=== PATIENT | female | born 1945 | race Caucasian/White ===

== ENCOUNTER 2017-05-15 22:01 | Inpatient (IN) | payer MEDICARE, BC ==
[~2017-05-15] VITALS: Ht 175.3 cm; Wt 60.9 kg
[~2017-05-15 22:01] MED LIST: CA C1TAB60 PO; CALC1CAP8 PO; CHOL200040 PO; DORZ10DR3 EACHEYE; FISH OIL PO; FISH1CAP PO; HYDR-3138 PO; INFL100V IV; METH2.5T PO; METH4TAB7 PO; METH8TAB5 PO; METO25TA35 PO; METOPROLOL PO; NABU750T PO; OMEP-110 PO; PRED10TA PO; PRED2.5T PO; REMICADE INFUSION; TIMO5DRO5 LEFTEYE
[2017-05-15] MEDS ORDERED: ACETAMINOPHEN 325 MG TABLET PO ONE (22:30)
[2017-05-15] MEDS ORDERED: SODIUM CHLORIDE 0.9% 1,000ML IVBOLUS ONE (22:30)
[2017-05-15] MEDS ORDERED: SODIUM CHLORIDE FLUSH 10ML SYR IVF ONE (22:30)
[2017-05-15] MEDS ORDERED: PIPERACILLIN/TAZO 3.375 GM in SODIUM CHLORIDE 0.9% 50 ML IVPB ONE (22:30)
[2017-05-15 23:04] LABS: ASPARTATE AMINO TRANSFERASE 58 U/L (15-37); BLOOD UREA NITROGEN 11 mg/dL (7-18)
[2017-05-15] MEDS ORDERED: PIPERACILLIN/TAZO/PMX 3.375GM 50 ML ONE (23:06)
[2017-05-15 23:10] LABS: IS PT STATUS REG ER OR PRE ER? YES
[2017-05-16] MEDS ORDERED: VANCOMYCIN 1,300 MG in SODIUM CHLORIDE 0.9% 250 ML IV ONE (01:30)
[2017-05-16] MEDS ORDERED: VANCOMYCIN PER PHARMACY IV ONE (01:30)
[2017-05-16] MEDS ORDERED: ASPIRIN 325 MG TABLET ONE (02:52)
[2017-05-16] MEDS ORDERED: ASPIRIN 325 MG TABLET PO ONE (03:00)
[2017-05-16] MEDS ORDERED: PROMETHAZINE 25 MG/ML, 1ML IM PRN (04:30)
[2017-05-16] MEDS ORDERED: MEROPENEM 1 GM in SODIUM CHLORIDE 0.9% 50 ML IV SCH (04:30)
[2017-05-16] MEDS ORDERED: VANCOMYCIN PER PHARMACY MC PRN (04:30)
[2017-05-16] MEDS ORDERED: ONDANSETRON 2MG/ML, 2ML IVPush PRN (04:30)
[2017-05-16 05:00] VITALS: BP 144/77
[2017-05-16 05:20] VITALS: BP 144/77
[2017-05-16 05:22] LABS: ASPARTATE AMINO TRANSFERASE 77 U/L (15-37); BLOOD UREA NITROGEN 10 mg/dL (7-18)
[2017-05-16 05:28] LABS: IS PT STATUS REG ER OR PRE ER? NO
[2017-05-16] MEDS: SODIUM CHLORIDE 0.9% 1,000 ML IV SCH ×2 (05:30→18:00)
[2017-05-16] MEDS: MEROPENEM 1 GM in SODIUM CHLORIDE 0.9% 100 ML IV SCH ×3 (05:30→23:10)
[2017-05-16] MEDS: ENOXAPARIN 40 MG/0.4 ML SQ SCH (05:30)
[2017-05-16 05:44] LABS: RAPID INFLUENZA A Negative (Negative); RAPID INFLUENZA B Negative (Negative)
[2017-05-16] MEDS ORDERED: MAGNESIUM SULFATE PMX 2GM/50ML 50 ML IV ONE (06:00)
[2017-05-16 06:06] LABS: DIFF TOTAL CELLS COUNTED 100 CELL DIFF
[2017-05-16 06:11] LABS: ANISOCYTOSIS 2+; POLYCHROMASIA 1+; VERIFY COUNTS? YES
[2017-05-16 06:12] LABS: MICROCYTOSIS 1+; OVALOCYTES 1+
[2017-05-16] MEDS ORDERED: PHARMACOKINETIC CONSULTATION MC ONE (06:30)
[2017-05-16] MEDS ORDERED: PHARMACOKINETIC MONITORING MC PRN (06:30)
[2017-05-16 06:38] VITALS: BP 125/74
[2017-05-16] MEDS: DORZOLAMIDE OPHTH 2%, 10ML EACHEYE SCH ×2 (09:00→20:24)
[2017-05-16] MEDS: TIMOLOL OPHTH 0.5%, 5ML LEFTEYE SCH (09:00)
[2017-05-16] MEDS: POTASSIUM CHLORIDE 20 MEQ TAB.ER.PRT PO SCH ×3 (09:24→18:42)
[2017-05-16] MEDS: METOPROLOL TARTRATE 25 MG TABLET PO SCH ×2 (09:24→20:25)
[2017-05-16] MEDS ORDERED: LEFL20TA16 PO (09:33)
[2017-05-16] MEDS ORDERED: GABA300C10 PO (09:33)
[2017-05-16] MEDS ORDERED: AMLO5TAB4 PO (09:33)
[2017-05-16 11:01] LABS: IS PT STATUS REG ER OR PRE ER? NO
[2017-05-16 14:22] VITALS: BP 143/82
[2017-05-16 15:40] LABS: IS PT STATUS REG ER OR PRE ER? NO
[2017-05-16 18:23] VITALS: BP 146/83
[2017-05-16] MEDS ORDERED: ACETAMINOPHEN 325 MG TABLET ONE (18:40)
[2017-05-16] MEDS: ACETAMINOPHEN 325 MG TABLET PO PRN (18:43)
[2017-05-16] MEDS: VANCOMYCIN 1,300 MG in SODIUM CHLORIDE 0.9% 250 ML IV SCH (20:19)
[2017-05-17] VITALS (8 sets, daily range): BP systolic 96–189; BP diastolic 59–98
[2017-05-17] MEDS: SODIUM CHLORIDE 0.9% 1,000 ML IV SCH ×3 (02:30→18:00)
[2017-05-17] MEDS ORDERED: FUROSEMIDE 20 MG/2 ML ONE (02:39)
[2017-05-17] MEDS ORDERED: MORPHINE SULFATE 4 MG/ML, 1ML IVPush PRN (03:00)
[2017-05-17] MEDS ORDERED: NITROGLYCERIN 0.4 MG BOTTLE (25 TABS) SL ONE (03:15)
[2017-05-17 03:19] LABS: ABG COLLECTION SITE ARTERIAL LINE
[2017-05-17] MEDS ORDERED: NITROGLYCERIN 0.4 MG BOTTLE (25 TABS) SL PRN (03:30)
[2017-05-17 03:43] LABS: IS PT STATUS REG ER OR PRE ER? NO
[2017-05-17] MEDS ORDERED: HEPARIN 5,000 UNITS/ML, 1ML ONE (03:44)
[2017-05-17] MEDS ORDERED: HEPARIN 5,000 UNITS/ML, 1ML IV ONE (04:00)
[2017-05-17] MEDS ORDERED: MIDAZOLAM 1 MG/ML, 5ML ONE (04:09)
[2017-05-17] MEDS ORDERED: NITROGLYCERIN 5 MG/ML, 10ML ONE (04:09)
[2017-05-17] MEDS ORDERED: VERAPAMIL 2.5 MG/ML, 2ML ONE (04:09)
[2017-05-17] MEDS ORDERED: FENTANYL PF 100 MCG/2ML ONE (04:09)
[2017-05-17] MEDS ORDERED: TICAGRELOR 90 MG TABLET ONE (04:10)
[2017-05-17] MEDS ORDERED: LIDOCAINE 2%, 20ML ONE (04:10)
[2017-05-17] MEDS ORDERED: BIVALIRUDIN 250 MG ONE (04:10)
[2017-05-17] MEDS ORDERED: HEPARIN 1,000 UNITS/ML, 10ML ONE (04:10)
[2017-05-17] MEDS: ENOXAPARIN 40 MG/0.4 ML SQ SCH (04:30)
[2017-05-17] MEDS: MEROPENEM 1 GM in SODIUM CHLORIDE 0.9% 100 ML IV SCH ×3 (06:11→21:26)
[2017-05-17 07:40] LABS: ASPARTATE AMINO TRANSFERASE 96 U/L (15-37); BLOOD UREA NITROGEN 12 mg/dL (7-18)
[2017-05-17 07:41] LABS: IS PT STATUS REG ER OR PRE ER? YES
[2017-05-17] MEDS ORDERED: FUROSEMIDE 40 MG/4 ML IV ONE (09:00)
[2017-05-17] MEDS: METOPROLOL TARTRATE 25 MG TABLET PO SCH ×2 (09:00→20:24)
[2017-05-17] MEDS: DORZOLAMIDE OPHTH 2%, 10ML EACHEYE SCH ×2 (09:00→20:24)
[2017-05-17] MEDS ORDERED: POTASSIUM CHLORIDE 20 MEQ TAB.ER.PRT PO ONE (09:00)
[2017-05-17] MEDS: TIMOLOL OPHTH 0.5%, 5ML LEFTEYE SCH (09:00)
[2017-05-17] MEDS: LISINOPRIL 5 MG TABLET PO SCH (09:00)
[2017-05-17 10:16] LABS: ABG COLLECTION SITE LEFT RADIAL; COLLATERAL CIRCULATION TESTING NORMAL; FIO2 50 %
[2017-05-17 12:13] LABS: IS PT STATUS REG ER OR PRE ER? NO
[2017-05-17] MEDS: CLOPIDOGREL 75 MG TABLET PO SCH (14:53)
[2017-05-17] MEDS ORDERED: CARVEDILOL 3.125 MG TABLET PO SCH (18:00)
[2017-05-17 18:28] LABS: IS PT STATUS REG ER OR PRE ER? NO
[2017-05-17] MEDS: POTASSIUM CHLORIDE 20 MEQ TAB.ER.PRT PO SCH (18:49)
[2017-05-17] MEDS: VANCOMYCIN 1,300 MG in SODIUM CHLORIDE 0.9% 250 ML IV SCH (19:38)
[2017-05-17] MEDS: ATORVASTATIN 20 MG TABLET PO SCH (20:24)
[2017-05-17] MEDS: ACETAMINOPHEN 325 MG TABLET PO PRN (20:24)
[2017-05-18 01:46] VITALS: BP 99/65
[2017-05-18] MEDS: SODIUM CHLORIDE 0.9% 1,000 ML IV SCH ×2 (02:00→10:00)
[2017-05-18] MEDS: ENOXAPARIN 40 MG/0.4 ML SQ SCH (04:27)
[2017-05-18] MEDS: MEROPENEM 1 GM in SODIUM CHLORIDE 0.9% 100 ML IV SCH ×3 (04:27→21:55)
[2017-05-18] MEDS: ASPIRIN 81 MG TABLET EC PO SCH (05:45)
[2017-05-18 06:33] LABS: ASPARTATE AMINO TRANSFERASE 101 U/L (15-37); BLOOD UREA NITROGEN 15 mg/dL (7-18)
[2017-05-18 06:37] VITALS: BP 118/76
[2017-05-18] MEDS ORDERED: POTASSIUM CHLORIDE 20 MEQ TAB.ER.PRT PO SCH (08:30)
[2017-05-18] MEDS: TIMOLOL OPHTH 0.5%, 5ML LEFTEYE SCH ×2 (09:00→21:18)
[2017-05-18] MEDS: POTASSIUM CHLORIDE 20 MEQ TAB.ER.PRT PO SCH ×2 (09:07→16:56)
[2017-05-18] MEDS: CLOPIDOGREL 75 MG TABLET PO SCH (09:08)
[2017-05-18] MEDS: LISINOPRIL 5 MG TABLET PO SCH (09:09)
[2017-05-18] MEDS: METOPROLOL TARTRATE 25 MG TABLET PO SCH ×2 (09:11→20:21)
[2017-05-18] MEDS: DORZOLAMIDE OPHTH 2%, 10ML EACHEYE SCH ×2 (09:18→20:20)
[2017-05-18 10:28] LABS: IS PT STATUS REG ER OR PRE ER? NO
[2017-05-18] MEDS ORDERED: FUROSEMIDE 20 MG/2 ML IV ONE (10:30)
[2017-05-18] MEDS ORDERED: POTASSIUM CHLORIDE 20 MEQ TAB.ER.PRT PO ONE (10:30)
[2017-05-18] MEDS: CARVEDILOL 3.125 MG TABLET PO SCH ×2 (12:02→18:00)
[2017-05-18 12:24] VITALS: BP 144/92
[2017-05-18] MEDS ORDERED: IBUPROFEN 200 MG TABLET PO PRN (13:00)
[2017-05-18 14:30] VITALS: BP 98/60
[2017-05-18] MEDS: GABAPENTIN 300 MG CAPSULE PO SCH ×2 (16:55→20:20)
[2017-05-18 20:00] VITALS: BP 97/60
[2017-05-18] MEDS: ATORVASTATIN 20 MG TABLET PO SCH (20:20)
[2017-05-19 02:00] VITALS: BP 101/65
[2017-05-19] MEDS: ENOXAPARIN 40 MG/0.4 ML SQ SCH (04:54)
[2017-05-19] MEDS: MEROPENEM 1 GM in SODIUM CHLORIDE 0.9% 100 ML IV SCH ×3 (04:54→22:49)
[2017-05-19] MEDS: ASPIRIN 81 MG TABLET EC PO SCH (04:55)
[2017-05-19] MEDS: CARVEDILOL 3.125 MG TABLET PO SCH (04:55)
[2017-05-19 05:20] LABS: BLOOD UREA NITROGEN 20 mg/dL (7-18)
[2017-05-19] MEDS ORDERED: POTASSIUM CHLORIDE 20 MEQ TAB.ER.PRT PO SCH (07:30)
[2017-05-19] MEDS ORDERED: MAGNESIUM SULFATE PMX 2GM/50ML 50 ML IV ONE (07:30)
[2017-05-19] MEDS: GABAPENTIN 300 MG CAPSULE PO SCH ×3 (08:49→20:41)
[2017-05-19] MEDS: CLOPIDOGREL 75 MG TABLET PO SCH (08:49)
[2017-05-19] MEDS: DORZOLAMIDE OPHTH 2%, 10ML EACHEYE SCH ×2 (08:49→20:41)
[2017-05-19] MEDS: POTASSIUM CHLORIDE 20 MEQ TAB.ER.PRT PO SCH ×3 (08:49→18:02)
[2017-05-19] MEDS ORDERED: POTASSIUM CHLORIDE 20 MEQ TAB.ER.PRT PO ONE (09:00)
[2017-05-19 09:09] VITALS: BP 105/71
[2017-05-19] MEDS: LISINOPRIL 5 MG TABLET PO SCH (12:02)
[2017-05-19 15:01] VITALS: BP 95/58
[2017-05-19 17:20] VITALS: BP 89/60
[2017-05-19] MEDS: CARVEDILOL 6.25 MG TABLET PO SCH (17:33)
[2017-05-19 19:00] VITALS: BP 111/76
[2017-05-19] MEDS: ATORVASTATIN 20 MG TABLET PO SCH (20:41)
[2017-05-19] MEDS: TIMOLOL OPHTH 0.5%, 5ML LEFTEYE SCH (20:41)
[2017-05-20 03:30] VITALS: BP 102/65
[2017-05-20 04:38] LABS: BLOOD UREA NITROGEN 14 mg/dL (7-18)
[2017-05-20] MEDS: ASPIRIN 81 MG TABLET EC PO SCH (05:53)
[2017-05-20] MEDS: CARVEDILOL 6.25 MG TABLET PO SCH ×2 (05:55→18:01)
[2017-05-20 06:07] LABS: HEPATITIS B SURFACE AG SCREEN Negative (Negative)
[2017-05-20] MEDS: MEROPENEM 1 GM in SODIUM CHLORIDE 0.9% 100 ML IV SCH ×3 (06:34→23:50)
[2017-05-20 07:51] VITALS: BP 96/60
[2017-05-20] MEDS: GABAPENTIN 300 MG CAPSULE PO SCH ×3 (08:00→19:54)
[2017-05-20] MEDS: POTASSIUM CHLORIDE 20 MEQ TAB.ER.PRT PO SCH ×2 (08:00→18:01)
[2017-05-20] MEDS: DORZOLAMIDE OPHTH 2%, 10ML EACHEYE SCH ×2 (08:00→19:54)
[2017-05-20] MEDS: ENOXAPARIN 40 MG/0.4 ML SQ SCH (08:00)
[2017-05-20] MEDS: CLOPIDOGREL 75 MG TABLET PO SCH (08:00)
[2017-05-20] MEDS: LISINOPRIL 5 MG TABLET PO SCH (08:01)
[2017-05-20 13:48] VITALS: BP 105/68
[2017-05-20 19:41] VITALS: BP 111/73
[2017-05-20] MEDS: TIMOLOL OPHTH 0.5%, 5ML LEFTEYE SCH (19:54)
[2017-05-20] MEDS: ATORVASTATIN 20 MG TABLET PO SCH (19:54)
[2017-05-21 01:01] VITALS: BP 103/65
[2017-05-21] MEDS: ASPIRIN 81 MG TABLET EC PO SCH (05:28)
[2017-05-21] MEDS: CARVEDILOL 6.25 MG TABLET PO SCH (05:28)
[2017-05-21] MEDS ORDERED: LEVOTHYROXINE 25 MCG TABLET PO SCH (06:00)
[2017-05-21 07:20] VITALS: BP 97/60
[2017-05-21] MEDS: MEROPENEM 1 GM in SODIUM CHLORIDE 0.9% 100 ML IV SCH (07:59)
[2017-05-21] MEDS: ENOXAPARIN 40 MG/0.4 ML SQ SCH (08:00)
[2017-05-21] MEDS: DORZOLAMIDE OPHTH 2%, 10ML EACHEYE SCH (08:00)
[2017-05-21] MEDS: LISINOPRIL 5 MG TABLET PO SCH (08:01)
[2017-05-21] MEDS: GABAPENTIN 300 MG CAPSULE PO SCH (08:01)
[2017-05-21] MEDS: POTASSIUM CHLORIDE 20 MEQ TAB.ER.PRT PO SCH (08:01)
[2017-05-21] MEDS: CLOPIDOGREL 75 MG TABLET PO SCH (08:01)
[2017-05-21] MEDS ORDERED: LEVO25TA2 PO (12:39)
[2017-05-21] MEDS ORDERED: ASPI-621 PO (12:39)
[2017-05-21] MEDS ORDERED: CARV6.2512 PO (12:39)
[2017-05-21] MEDS ORDERED: ATOR20TA9 PO ×2 (12:39→14:51)
[2017-05-21] MEDS ORDERED: CLOP75TA PO (12:39)
[2017-05-21] MEDS ORDERED: LISI5TAB7 PO (12:39)
[2017-05-21] MEDS ORDERED: ERTA1VIA IV (12:39)
[2017-05-21 13:15] VITALS: BP 96/63
[2017-05-21] MEDS ORDERED: ERTAPENEM 1 GM in SODIUM CHLORIDE 0.9% 50 ML IV SCH (14:00)
== END 2017-05-21 16:10 | disposition home or self-care (01) | DRG 871 ==
LOC: ED 23:17 → EDIP 05-16 02:53 → 5SO 05-16 04:58
PROVIDERS: ADMIT Internal Medicine
PROC: 0T9B70Z Drainage of Bladder with Drainage Device, Via Natural or Artificial Opening (ICD-10-PCS; 2017-05-15)
PROC: 4A023N7 Measurement of Cardiac Sampling and Pressure, Left Heart, Percutaneous Approach (ICD-10-PCS; 2017-05-17)
PROC: B2111ZZ Fluoroscopy of Multiple Coronary Arteries using Low Osmolar Contrast (ICD-10-PCS; 2017-05-17)
PROC: B2151ZZ Fluoroscopy of Left Heart using Low Osmolar Contrast (ICD-10-PCS; 2017-05-17)
PROC: 02HV33Z Insertion of Infusion Device into Superior Vena Cava, Percutaneous Approach (ICD-10-PCS; principal; 2017-05-18)
PROC: B548ZZA Ultrasonography of Superior Vena Cava, Guidance (ICD-10-PCS; 2017-05-18)
DX: A41.9 Sepsis, unspecified organism (principal); G93.41 Metabolic encephalopathy; E43 Unspecified severe protein-calorie malnutrition; I50.21 Acute systolic (congestive) heart failure; I21.09 ST elevation (STEMI) myocardial infarction involving other coronary artery of anterior wall; J18.9 Pneumonia, unspecified organism; J96.01 Acute respiratory failure with hypoxia; N15.1 Renal and perinephric abscess; A04.7 Enterocolitis due to Clostridium difficile; I42.9 Cardiomyopathy, unspecified; E87.1 Hypo-osmolality and hyponatremia; Z68.1 Body mass index [BMI] 19.9 or less, adult; D63.8 Anemia in other chronic diseases classified elsewhere; E03.9 Hypothyroidism, unspecified; E87.6 Hypokalemia; H40.9 Unspecified glaucoma; I11.0 Hypertensive heart disease with heart failure; I34.0 Nonrheumatic mitral (valve) insufficiency; K44.9 Diaphragmatic hernia without obstruction or gangrene; K73.9 Chronic hepatitis, unspecified; M06.9 Rheumatoid arthritis, unspecified; Z16.12 Extended spectrum beta lactamase (ESBL) resistance; Z79.899 Other long term (current) drug therapy; Z86.19 Personal history of other infectious and parasitic diseases; Z87.01 Personal history of pneumonia (recurrent); Z87.891 Personal history of nicotine dependence; Z90.49 Acquired absence of other specified parts of digestive tract; M19.90 Unspecified osteoarthritis, unspecified site
CPT/HCPCS: 36415; 36569; 36600; 71010; 71250; 71260; 74177; 76937; 77001; 78452; 80048; 80053; 81003; 82140; 82728; 82803; 83516; 83605; 83735; 84100; 84145; 84443; 84484; 85025; 85610; 85730; 86038; 86704; 86706; 86803; 87040; 87081; 87324; 87340; 87400; 87880; 93005; 93306; 93458; 96365; 96366; 96368; 96375; 99156; 99157; C1760; C1894; J0583; J1335; J1644; J1650; J1940; J2185; J2250; J2543; J3010; J3370; J3490; A9502; C1751; C1887; J3475; J7030; J7050; Q9967

== ENCOUNTER 2017-06-09 17:59 | Inpatient (IN) | payer MEDICARE, BC ==
[~2017-06-09] VITALS: Ht 160 cm; Wt 71.0 kg
[~2017-06-09 17:59] MED LIST changes: -OMNIPAQUE 350 MG/ML, 100ML BOTTLE ONE
[2017-06-09] MEDS ORDERED: SODIUM CHLORIDE 0.9% 1,000 ML IV ONE (18:07)
[2017-06-09] MEDS ORDERED: SODIUM CHLORIDE FLUSH 10ML SYR IVF ONE (18:30)
[2017-06-09] MEDS ORDERED: ACETAMINOPHEN 500 MG TABLET ONE (18:30)
[2017-06-09] MEDS ORDERED: PLEASE ENTER HEIGHT AND WEIGHT MC SCH (18:30)
[2017-06-09] MEDS ORDERED: ACETAMINOPHEN 500 MG TABLET PO ONE (18:30)
[2017-06-09 19:22] LABS: ASPARTATE AMINO TRANSFERASE 41 U/L (15-37); BLOOD UREA NITROGEN 9 mg/dL (7-18)
[2017-06-09 19:51] LABS: ANISOCYTOSIS 2+; OVALOCYTES 1+; POLYCHROMASIA 1+; SCHISTOCYTES 1+
[2017-06-09 19:52] LABS: TARGET CELLS 1+
[2017-06-09 19:56] LABS: MICROCYTOSIS 1+
[2017-06-09] MEDS ORDERED: TEMAZEPAM 15 MG CAPSULE PO PRN (21:30)
[2017-06-09] MEDS ORDERED: ONDANSETRON ODT 4 MG PO PRN (21:30)
[2017-06-09] MEDS ORDERED: ACETAMINOPHEN 325 MG TABLET PO PRN (21:30)
[2017-06-09 22:50] VITALS: BP 104/65
[2017-06-09] MEDS: SODIUM CHLORIDE 0.9% 1,000 ML IV SCH (23:25)
[2017-06-09] MEDS: ENOXAPARIN 40 MG/0.4 ML SQ SCH (23:25)
[2017-06-10 01:47] VITALS: BP 138/90
[2017-06-10] MEDS: ASPIRIN 81 MG TABLET EC PO SCH (05:34)
[2017-06-10] MEDS: CARVEDILOL 6.25 MG TABLET PO SCH ×2 (05:35→18:20)
[2017-06-10] MEDS: LEVOTHYROXINE 25 MCG TABLET PO SCH (05:35)
[2017-06-10 06:35] LABS: BLOOD UREA NITROGEN 9 mg/dL (7-18)
[2017-06-10 07:31] VITALS: BP 91/51
[2017-06-10] MEDS: DORZOLAMIDE OPHTH 2%, 10ML EACHEYE SCH ×2 (09:00→20:43)
[2017-06-10] MEDS ORDERED: ERTAPENEM 1 GM IV SCH (09:00)
[2017-06-10] MEDS ORDERED: TIMOLOL OPHTH 0.5%, 5ML LEFTEYE SCH (09:00)
[2017-06-10] MEDS ORDERED: metroNIDAZOLE 500 MG TABLET PO SCH (09:00)
[2017-06-10] MEDS: OMEGA-3/FISH OIL CAPSULE PO SCH (09:32)
[2017-06-10] MEDS: ERTAPENEM 1 GM in SODIUM CHLORIDE 0.9% 50 ML IV SCH (09:32)
[2017-06-10] MEDS: LISINOPRIL 5 MG TABLET PO SCH (09:33)
[2017-06-10] MEDS: CLOPIDOGREL 75 MG TABLET PO SCH (09:33)
[2017-06-10] MEDS: CALCIUM/VITAMIN D3 250-125 TABLET PO SCH ×3 (09:33→20:42)
[2017-06-10] MEDS: NABUMETONE 500 MG TABLET PO SCH ×2 (09:33→20:42)
[2017-06-10] MEDS: GABAPENTIN 300 MG CAPSULE PO SCH ×3 (09:33→20:42)
[2017-06-10] MEDS: CHOLECALCIFEROL 1,000 UNIT TABLET PO SCH (09:33)
[2017-06-10] MEDS: VANCOMYCIN 50 MG/ML ORAL SUSP PO SCH ×3 (11:52→22:16)
[2017-06-10] MEDS: SODIUM CHLORIDE 0.9% 1,000 ML IV SCH (12:02)
[2017-06-10 13:28] VITALS: BP 106/61
[2017-06-10] MEDS ORDERED: POTASSIUM PHOSPHATE 22 MEQ in SODIUM CHLORIDE 0.9% 500 ML IV ONE (16:00)
[2017-06-10 19:18] VITALS: BP 87/52
[2017-06-10] MEDS: ENOXAPARIN 40 MG/0.4 ML SQ SCH (20:43)
[2017-06-10] MEDS ORDERED: ATORVASTATIN 20 MG TABLET PO SCH (21:00)
[2017-06-11 01:58] VITALS: BP 102/62
[2017-06-11] MEDS: VANCOMYCIN 50 MG/ML ORAL SUSP PO SCH ×4 (04:25→22:23)
[2017-06-11 05:03] LABS: BLOOD UREA NITROGEN 10 mg/dL (7-18)
[2017-06-11 05:10] LABS: DIFF TOTAL CELLS COUNTED 100 CELL DIFF
[2017-06-11 05:12] LABS: VERIFY COUNTS? YES
[2017-06-11 05:13] LABS: ANISOCYTOSIS 1+; MICROCYTOSIS 1+; OVALOCYTES 1+; POLYCHROMASIA 1+
[2017-06-11 05:14] LABS: SCHISTOCYTES 1+; TARGET CELLS 1+
[2017-06-11] MEDS: LEVOTHYROXINE 25 MCG TABLET PO SCH (05:36)
[2017-06-11] MEDS: ASPIRIN 81 MG TABLET EC PO SCH (05:37)
[2017-06-11] MEDS: CARVEDILOL 6.25 MG TABLET PO SCH ×2 (05:37→18:00)
[2017-06-11 08:07] VITALS: BP 92/57
[2017-06-11] MEDS: DORZOLAMIDE OPHTH 2%, 10ML EACHEYE SCH ×2 (09:00→20:48)
[2017-06-11] MEDS: CLOPIDOGREL 75 MG TABLET PO SCH ×2 (09:00→09:18)
[2017-06-11] MEDS: POTASSIUM CHLORIDE 20 MEQ TAB.ER.PRT PO SCH ×2 (09:15→16:52)
[2017-06-11] MEDS: SODIUM CHLORIDE 0.9% 1,000 ML IV SCH (09:15)
[2017-06-11] MEDS: GABAPENTIN 300 MG CAPSULE PO SCH ×3 (09:16→20:48)
[2017-06-11] MEDS: CHOLECALCIFEROL 1,000 UNIT TABLET PO SCH (09:16)
[2017-06-11] MEDS: ERTAPENEM 1 GM in SODIUM CHLORIDE 0.9% 50 ML IV SCH (09:16)
[2017-06-11] MEDS: CALCIUM/VITAMIN D3 250-125 TABLET PO SCH ×3 (09:17→20:48)
[2017-06-11] MEDS: NABUMETONE 500 MG TABLET PO SCH ×2 (09:18→20:48)
[2017-06-11] MEDS: OMEGA-3/FISH OIL CAPSULE PO SCH (09:19)
[2017-06-11] MEDS: LISINOPRIL 5 MG TABLET PO SCH (09:22)
[2017-06-11 09:30] VITALS: BP 100/62
[2017-06-11] MEDS: LACTOBACILLUS CHEW TABLET PO SCH ×3 (12:00→20:48)
[2017-06-11 12:59] LABS: OCCBLD OBC PASS
[2017-06-11 14:39] VITALS: BP 95/59
[2017-06-11] MEDS: TIMOLOL OPHTH 0.5%, 5ML LEFTEYE SCH (20:48)
[2017-06-11] MEDS: ENOXAPARIN 40 MG/0.4 ML SQ SCH (20:48)
[2017-06-11 20:50] VITALS: BP 94/58
[2017-06-12] MEDS: SODIUM CHLORIDE 0.9% 1,000 ML IV SCH ×2 (00:27→22:21)
[2017-06-12 01:14] LABS: OCCBLD OBC PASS
[2017-06-12 02:55] VITALS: BP 99/62
[2017-06-12] MEDS: VANCOMYCIN 50 MG/ML ORAL SUSP PO SCH ×4 (04:20→22:21)
[2017-06-12 04:43] LABS: BLOOD UREA NITROGEN 11 mg/dL (7-18)
[2017-06-12 05:40] LABS: DIFF TOTAL CELLS COUNTED 100 CELL DIFF
[2017-06-12 05:42] LABS: ANISOCYTOSIS 1+; VERIFY COUNTS? YES
[2017-06-12 05:43] LABS: OVALOCYTES 1+; POLYCHROMASIA 1+; SCHISTOCYTES 1+
[2017-06-12 05:44] LABS: TARGET CELLS 1+
[2017-06-12] MEDS: ASPIRIN 81 MG TABLET EC PO SCH (05:44)
[2017-06-12] MEDS: LACTOBACILLUS CHEW TABLET PO SCH ×4 (05:44→20:39)
[2017-06-12] MEDS: LEVOTHYROXINE 25 MCG TABLET PO SCH (05:44)
[2017-06-12] MEDS: CARVEDILOL 6.25 MG TABLET PO SCH ×2 (05:46→18:04)
[2017-06-12 07:21] VITALS: BP 109/67
[2017-06-12] MEDS ORDERED: POTASSIUM PHOSPHATE 22 MEQ in SODIUM CHLORIDE 0.9% 500 ML IV ONE (08:30)
[2017-06-12] MEDS: GABAPENTIN 300 MG CAPSULE PO SCH ×3 (08:52→20:39)
[2017-06-12] MEDS: ERTAPENEM 1 GM in SODIUM CHLORIDE 0.9% 50 ML IV SCH (08:52)
[2017-06-12] MEDS: OMEGA-3/FISH OIL CAPSULE PO SCH (08:53)
[2017-06-12] MEDS: CHOLECALCIFEROL 1,000 UNIT TABLET PO SCH (08:53)
[2017-06-12] MEDS: CALCIUM/VITAMIN D3 250-125 TABLET PO SCH ×3 (08:53→20:39)
[2017-06-12] MEDS: NABUMETONE 500 MG TABLET PO SCH ×2 (08:53→20:39)
[2017-06-12] MEDS: LISINOPRIL 5 MG TABLET PO SCH (08:54)
[2017-06-12] MEDS: DORZOLAMIDE OPHTH 2%, 10ML EACHEYE SCH ×2 (08:58→20:40)
[2017-06-12 14:33] VITALS: BP 94/60
[2017-06-12 17:55] VITALS: BP 120/77
[2017-06-12] MEDS: ENOXAPARIN 40 MG/0.4 ML SQ SCH (20:39)
[2017-06-12] MEDS: TIMOLOL OPHTH 0.5%, 5ML LEFTEYE SCH (20:40)
[2017-06-12 20:51] VITALS: BP 106/66
[2017-06-13 02:59] VITALS: BP 85/50
[2017-06-13] MEDS: VANCOMYCIN 50 MG/ML ORAL SUSP PO SCH ×4 (05:24→21:50)
[2017-06-13] MEDS: LACTOBACILLUS CHEW TABLET PO SCH ×4 (05:24→21:40)
[2017-06-13] MEDS: ASPIRIN 81 MG TABLET EC PO SCH (05:24)
[2017-06-13] MEDS: CARVEDILOL 6.25 MG TABLET PO SCH ×2 (05:27→16:58)
[2017-06-13] MEDS: LEVOTHYROXINE 25 MCG TABLET PO SCH (05:52)
[2017-06-13 06:56] VITALS: BP 136/78
[2017-06-13] MEDS: NABUMETONE 500 MG TABLET PO SCH ×2 (08:46→21:40)
[2017-06-13] MEDS: OMEGA-3/FISH OIL CAPSULE PO SCH (08:47)
[2017-06-13] MEDS: DORZOLAMIDE OPHTH 2%, 10ML EACHEYE SCH ×2 (08:47→21:00)
[2017-06-13] MEDS: CHOLECALCIFEROL 1,000 UNIT TABLET PO SCH (08:47)
[2017-06-13] MEDS: GABAPENTIN 300 MG CAPSULE PO SCH ×3 (08:47→21:40)
[2017-06-13] MEDS: LISINOPRIL 5 MG TABLET PO SCH (08:47)
[2017-06-13] MEDS: CALCIUM/VITAMIN D3 250-125 TABLET PO SCH ×3 (08:47→21:40)
[2017-06-13] MEDS: ERTAPENEM 1 GM in SODIUM CHLORIDE 0.9% 50 ML IV SCH (09:56)
[2017-06-13] MEDS: SODIUM CHLORIDE 0.9% 1,000 ML IV SCH ×2 (09:56→23:43)
[2017-06-13 12:50] VITALS: BP 144/82
[2017-06-13 16:56] VITALS: BP 121/64
[2017-06-13 18:22] VITALS: BP 114/81
[2017-06-13] MEDS: TIMOLOL OPHTH 0.5%, 5ML LEFTEYE SCH (21:00)
[2017-06-13] MEDS: ENOXAPARIN 40 MG/0.4 ML SQ SCH (21:40)
[2017-06-14 02:24] VITALS: BP 102/48
[2017-06-14] MEDS: VANCOMYCIN 50 MG/ML ORAL SUSP PO SCH ×4 (05:15→23:00)
[2017-06-14] MEDS: ASPIRIN 81 MG TABLET EC PO SCH (05:15)
[2017-06-14] MEDS: LACTOBACILLUS CHEW TABLET PO SCH ×4 (05:15→22:02)
[2017-06-14] MEDS: LEVOTHYROXINE 25 MCG TABLET PO SCH (05:15)
[2017-06-14 05:18] VITALS: BP 128/72
[2017-06-14] MEDS: CARVEDILOL 6.25 MG TABLET PO SCH ×2 (05:18→16:48)
[2017-06-14 07:00] VITALS: BP 113/73
[2017-06-14] MEDS: OMEGA-3/FISH OIL CAPSULE PO SCH (10:06)
[2017-06-14] MEDS: CHOLECALCIFEROL 1,000 UNIT TABLET PO SCH (10:06)
[2017-06-14] MEDS: CALCIUM/VITAMIN D3 250-125 TABLET PO SCH ×3 (10:07→22:02)
[2017-06-14] MEDS: LISINOPRIL 5 MG TABLET PO SCH (10:07)
[2017-06-14] MEDS: GABAPENTIN 300 MG CAPSULE PO SCH ×3 (10:07→22:02)
[2017-06-14] MEDS: ERTAPENEM 1 GM in SODIUM CHLORIDE 0.9% 50 ML IV SCH (10:08)
[2017-06-14] MEDS: NABUMETONE 500 MG TABLET PO SCH ×2 (10:08→22:02)
[2017-06-14] MEDS: DORZOLAMIDE OPHTH 2%, 10ML EACHEYE SCH ×2 (10:13→22:01)
[2017-06-14 12:51] VITALS: BP 120/74
[2017-06-14] MEDS: SODIUM CHLORIDE 0.9% 1,000 ML IV SCH (13:23)
[2017-06-14 14:05] LABS: OCCBLD OBC PASS
[2017-06-14 20:23] VITALS: BP 130/71
[2017-06-14] MEDS: ENOXAPARIN 40 MG/0.4 ML SQ SCH (22:02)
[2017-06-14] MEDS: TIMOLOL OPHTH 0.5%, 5ML LEFTEYE SCH (22:02)
[2017-06-15 01:31] VITALS: BP 107/66
[2017-06-15] MEDS: SODIUM CHLORIDE 0.9% 1,000 ML IV SCH ×2 (02:19→17:18)
[2017-06-15] MEDS: ASPIRIN 81 MG TABLET EC PO SCH (05:50)
[2017-06-15] MEDS: CARVEDILOL 6.25 MG TABLET PO SCH ×2 (05:50→17:17)
[2017-06-15] MEDS: VANCOMYCIN 50 MG/ML ORAL SUSP PO SCH ×3 (05:50→17:17)
[2017-06-15] MEDS: LACTOBACILLUS CHEW TABLET PO SCH ×3 (05:50→17:17)
[2017-06-15] MEDS: LEVOTHYROXINE 25 MCG TABLET PO SCH (05:50)
[2017-06-15 06:38] LABS: ASPARTATE AMINO TRANSFERASE 31 U/L (15-37); BLOOD UREA NITROGEN 6 mg/dL (7-18)
[2017-06-15 07:40] VITALS: BP 110/73
[2017-06-15] MEDS: NABUMETONE 500 MG TABLET PO SCH (09:08)
[2017-06-15] MEDS: LISINOPRIL 5 MG TABLET PO SCH (09:08)
[2017-06-15] MEDS: CALCIUM/VITAMIN D3 250-125 TABLET PO SCH ×2 (09:08→17:19)
[2017-06-15] MEDS: CHOLECALCIFEROL 1,000 UNIT TABLET PO SCH (09:08)
[2017-06-15] MEDS: GABAPENTIN 300 MG CAPSULE PO SCH ×2 (09:08→17:17)
[2017-06-15] MEDS: ERTAPENEM 1 GM in SODIUM CHLORIDE 0.9% 50 ML IV SCH (09:09)
[2017-06-15] MEDS: DORZOLAMIDE OPHTH 2%, 10ML EACHEYE SCH (09:10)
[2017-06-15] MEDS: OMEGA-3/FISH OIL CAPSULE PO SCH (09:11)
[2017-06-15 13:23] VITALS: BP 145/83
[2017-06-15] MEDS ORDERED: VANC1VIA3 PO (15:37)
[2017-06-15] MEDS ORDERED: VANC125C2 PO (15:52)
[2017-06-15 17:15] VITALS: BP 149/81
== END 2017-06-15 18:07 | DRG 871 ==
LOC: ED 21:19 → EDIP 21:20 → ED 21:21 → 4NOR 22:00
PROVIDERS: ADMIT Internal Medicine; ATTEND Internal Medicine
DX: A41.51 Sepsis due to Escherichia coli [E. coli] (principal); E43 Unspecified severe protein-calorie malnutrition; N15.1 Renal and perinephric abscess; A04.7 Enterocolitis due to Clostridium difficile; N12 Tubulo-interstitial nephritis, not specified as acute or chronic; R19.7 Diarrhea, unspecified; D64.9 Anemia, unspecified; D69.6 Thrombocytopenia, unspecified; E03.9 Hypothyroidism, unspecified; E83.39 Other disorders of phosphorus metabolism; E87.6 Hypokalemia; H40.9 Unspecified glaucoma; I11.0 Hypertensive heart disease with heart failure; I50.9 Heart failure, unspecified; K21.9 Gastro-esophageal reflux disease without esophagitis; K73.9 Chronic hepatitis, unspecified; M06.9 Rheumatoid arthritis, unspecified; Z16.12 Extended spectrum beta lactamase (ESBL) resistance; Z86.19 Personal history of other infectious and parasitic diseases; Z91.81 History of falling; Z68.27 Body mass index [BMI] 27.0-27.9, adult
CPT/HCPCS: 36415; 71020; 74178; 80048; 80053; 81003; 82272; 83605; 83735; 84100; 84145; 85014; 85018; 85025; 85651; 86140; 87040; 87324; 96360; 96361; J1335; J1650; J3370; Q9967; J7030; J7040

== ENCOUNTER → 2017-06-09 | Outpatient (CLI) | payer MEDICARE, BC ==
[~2017-06-09] MED LIST changes: +AMLO5TAB4 PO; +ASPI-621 PO; +ATOR20TA9 PO; +CARV6.2512 PO; +CLOP75TA PO; +ERTA1VIA IV; +GABA300C10 PO; +LEFL20TA16 PO; +LEVO25TA2 PO; +LISI5TAB7 PO; +OMNIPAQUE 350 MG/ML, 100ML BOTTLE ONE
== END | disposition home or self-care (01) ==
LOC: CFH 11:01
PROVIDERS: ATTEND Internal Medicine Infectious Disease
DX: N28.9 Disorder of kidney and ureter, unspecified (principal); R18.8 Other ascites
CPT/HCPCS: 74178; Q9967

== ENCOUNTER → 2017-07-20 | Outpatient (CLI) | payer MEDICARE, BC ==
[~2017-07-20] MED LIST changes: -HYDR-3138 PO; +HYDR-3237 PO; +OMNIPAQUE 350 MG/ML, 100ML BOTTLE ONE; +VANC125C2 PO; +VANC1VIA3 PO
== END | disposition home or self-care (01) ==
LOC: CFH 14:05
PROVIDERS: ATTEND Internal Medicine Infectious Disease
DX: K44.9 Diaphragmatic hernia without obstruction or gangrene (principal); N15.1 Renal and perinephric abscess
CPT/HCPCS: 74178; Q9967

== ENCOUNTER 2017-11-17 11:45 | Emergency (ER) | payer MEDICARE, BC ==
[~2017-11-17] VITALS: Ht 160 cm; Wt 60.0 kg
[~2017-11-17 11:45] MED LIST changes: -OMNIPAQUE 350 MG/ML, 100ML BOTTLE ONE
[2017-11-17 12:06] VITALS: BP 99/64
[2017-11-17] MEDS ORDERED: KETOROLAC 30 MG/1 ML IM ONE (13:00)
[2017-11-17] MEDS ORDERED: KETOROLAC 30 MG/1 ML ONE (13:22)
== END 2017-11-17 13:47 | disposition home or self-care (01) ==
LOC: ED 13:37
DX: M06.9 Rheumatoid arthritis, unspecified (principal); I10 Essential (primary) hypertension; E03.9 Hypothyroidism, unspecified; K21.9 Gastro-esophageal reflux disease without esophagitis
CPT/HCPCS: 96372; 99283; J1885

== ENCOUNTER → 2018-07-16 | Outpatient (CLI) | payer MEDICARE, BC ==
[~2018-07-16] MED LIST changes: +DORZ10DR26 EACHEYE; -DORZ10DR3 EACHEYE; +GADOBUTROL 7.5 MMOL/7.5 ML PFS ONE
== END | disposition home or self-care (01) ==
LOC: CFH 12:55
PROVIDERS: ATTEND Psychiatry & Neurology Neurology
DX: I67.82 Cerebral ischemia (principal); R90.82 White matter disease, unspecified; Z87.891 Personal history of nicotine dependence
CPT/HCPCS: 70553; A9585

== ENCOUNTER 2018-12-01 11:59 | Emergency (ER) | payer MEDICARE, BC ==
[~2018-12-01] VITALS: Ht 160 cm; Wt 55.0 kg
[~2018-12-01 11:59] MED LIST changes: -ASPI-621 PO; +ASPI81TA45 PO; +ATOR20TA37 PO; -ATOR20TA9 PO; -GADOBUTROL 7.5 MMOL/7.5 ML PFS ONE
[2018-12-01 12:36] LABS: BASOPHILS # (AUTO) 0.01 x10^3/uL (0-0.1); BASOPHILS % (AUTO) 0 % (0-1); EOSINOPHILS # (AUTO) 0.07 x10^3/uL (0-0.4); EOSINOPHILS % (AUTO) 1 % (1-7); LYMPHOCYTES # (AUTO) 0.95 x10^3/uL (1-3.4); LYMPHOCYTES % (AUTO) 11 % (22-44); MD NO; MEAN CORPUSCULAR HEMOGLOBIN 27.5 pg (27.0-34.8); MEAN CORPUSCULAR HGB CONC 32.4 g/dL (32.4-35.8); MEAN CORPUSCULAR VOLUME 84.7 fL (80-100); MEAN PLATELET VOLUME 6.3 fL (7.4-10.4); MONOCYTES # (AUTO) 0.48 x10^3/uL (0.2-0.8); MONOCYTES % (AUTO) 6 % (2-9); NEUTROPHILS # (AUTO) 7.14 x10^3/uL (1.8-6.8); NEUTROPHILS % (AUTO) 83 % (42-75); PLATELET COUNT 344 x10^3/uL (130-400); RED CELL DISTRIBUTION WIDTH 21.1 % (9.6-15.2)
[2018-12-01 12:50] LABS: ALANINE AMINOTRANSFERASE 18 U/L (12-78); ALBUMIN 2.5 g/dL (3.4-5.0); ANION GAP 9 mmol/L (5-15); CALCIUM 9.1 mg/dL (8.5-10.1); CHLORIDE 102 mmol/L (98-107); CREATININE 0.76 mg/dL (0.55-1.02)
[2018-12-01 12:51] LABS: ALKALINE PHOSPHATASE 141 U/L (45-117); BILIRUBIN,TOTAL 0.6 mg/dL (0.2-1.0)
[2018-12-01] MEDS ORDERED: SULF500T36 PO (14:32)
--- NOTE | 2018-12-01 14:50 | NUR ---
JOHNNY RN: IV PLACED, PT CONNECTED TO MONITOR, VSS. UA COLLECTED AND SENT TO LAB. FAMILY AT BEDSIDE. MD TO BEDSIDE TO UPDATE PT AND FAMILY ON POC, CTA ORDERED. CALL LIGHT WITHIN REACH
[2018-12-01 15:03] LABS: CULTURE INDICATED? YES; MICROSCOPIC INDICATED
[2018-12-01] MEDS ORDERED: OMNIPAQUE 350 MG/ML, 100ML BOTTLE ONE (16:01)
[2018-12-01 17:42] VITALS: BP 124/61
== END 2018-12-01 17:47 | disposition home or self-care (01) ==
LOC: ED 16:07
DX: J90 Pleural effusion, not elsewhere classified (principal); E03.9 Hypothyroidism, unspecified; K21.9 Gastro-esophageal reflux disease without esophagitis; I10 Essential (primary) hypertension; M06.9 Rheumatoid arthritis, unspecified
CPT/HCPCS: 36415; 71275; 74022; 74177; 80053; 81001; 85025; 87086; 99284; Q9967

== ENCOUNTER → 2018-12-30 | Outpatient (CLI) | payer MEDICARE, BC ==
[~2018-12-30] MED LIST changes: +SULF500T36 PO
== END | disposition home or self-care (01) ==
LOC: RAD 08:23
PROVIDERS: ATTEND Family Medicine
DX: E04.1 Nontoxic single thyroid nodule (principal)
CPT/HCPCS: 76942

== ENCOUNTER → 2019-01-03 | Outpatient (CLI) | payer MEDICARE, BC | END | disposition home or self-care (01) | LOC: CFH 12:30 | PROVIDERS: ATTEND Family Medicine | DX: Z12.2 Encounter for screening for malignant neoplasm of respiratory organs (principal); J90 Pleural effusion, not elsewhere classified; I25.10 Atherosclerotic heart disease of native coronary artery without angina pectoris; K44.9 Diaphragmatic hernia without obstruction or gangrene; J98.4 Other disorders of lung; F17.210 Nicotine dependence, cigarettes, uncomplicated | CPT/HCPCS: G0297 ==

== ENCOUNTER → 2019-02-04 | Outpatient (CLI) | payer MEDICARE, BC ==
[~2019-02-04] MED LIST changes: -VANC125C2 PO; +VANC125C3 PO
== END | disposition home or self-care (01) ==
LOC: RAD 08:22
PROVIDERS: ATTEND Family Medicine
DX: K44.9 Diaphragmatic hernia without obstruction or gangrene (principal); K21.9 Gastro-esophageal reflux disease without esophagitis; K22.8 Other specified diseases of esophagus; D64.9 Anemia, unspecified; R13.10 Dysphagia, unspecified
CPT/HCPCS: 74220

== ENCOUNTER → 2019-02-25 | Outpatient (CLI) | payer MEDICARE, BC ==
[~2019-02-25] MED LIST changes: +OMNIPAQUE 350 MG/ML, 100ML BOTTLE ONE
== END | disposition home or self-care (01) ==
LOC: CFH 12:55
PROVIDERS: ATTEND Family Medicine
DX: K74.60 Unspecified cirrhosis of liver (principal); R18.8 Other ascites; K44.9 Diaphragmatic hernia without obstruction or gangrene; K76.0 Fatty (change of) liver, not elsewhere classified; I85.00 Esophageal varices without bleeding; J90 Pleural effusion, not elsewhere classified; M85.88 Other specified disorders of bone density and structure, other site; R59.9 Enlarged lymph nodes, unspecified; Z90.49 Acquired absence of other specified parts of digestive tract; Z87.891 Personal history of nicotine dependence
CPT/HCPCS: 74170; Q9967

== ENCOUNTER 2021-07-24 11:27 | Inpatient (IN) | payer MEDICARE, BC ==
[~2021-07-24] VITALS: Ht 160 cm; Wt 71.6 kg
[~2021-07-24 11:27] MED LIST changes: -NABU750T PO; +NABU750T11 PO; -OMNIPAQUE 350 MG/ML, 100ML BOTTLE ONE; -VANC1VIA3 PO; +VANC1VIA36 PO
[2021-07-24 13:28] LABS: MEAN CORPUSCULAR HEMOGLOBIN 33.4 pg (27.0-34.8); MEAN CORPUSCULAR HGB CONC 32.8 g/dL (32.4-35.8); MEAN PLATELET VOLUME 7.5 fL (7.4-10.4); PLATELET COUNT 200 x10^3/uL (130-400); RED BLOOD COUNT 1.99 x10^6/uL (3.82-5.3); RED CELL DISTRIBUTION WIDTH 17.6 % (9.6-15.2)
[2021-07-24] MEDS ORDERED: SODIUM CHLORIDE 0.9% 1,000ML IVBOLUS ONE (13:30)
[2021-07-24 13:32] LABS: ALANINE AMINOTRANSFERASE 28 U/L (12-78); ALBUMIN 2.4 g/dL (3.4-5.0); ANION GAP 7 mmol/L (5-15); CALCIUM 8.7 mg/dL (8.5-10.1); CHLORIDE 111 mmol/L (98-107); CREATININE 0.67 mg/dL (0.55-1.02)
[2021-07-24 13:35] LABS: ALKALINE PHOSPHATASE 65 U/L (45-117); BILIRUBIN,TOTAL 0.7 mg/dL (0.2-1.0); TOTAL PROTEIN 6.3 g/dL (6.4-8.2)
--- NOTE | 2021-07-24 13:44 | NUR ---
TASK RN: ROSC ACHIEVED AT THIS TIME.
--- NOTE | 2021-07-24 13:47 | NUR ---
PT MOVED TO TRAUMA 4
--- NOTE | 2021-07-24 13:56 | NUR ---
TASK RN: VERBAL ORDER FOR STAT O NEG BLOOD. VERIFIED W/ NICHOLAS ROBERTSON.
[2021-07-24] MEDS ORDERED: PANTOPRAZOLE 80 MG in SODIUM CHLORIDE 0.9% 50 ML IVPB ONE (14:00)
--- NOTE | 2021-07-24 14:02 | NUR ---
PT AWAKE, TALKING WITH SON. EKG COMPLETED. O NEG BLOOD INFUSING. DIRECTOR BUILDING AT BEDSIDE FOR SECOND PIV PLACEMENT. PT CONNECTED TO ALL MONITORING.
[2021-07-24 14:15] LABS: BAND#(MANUAL) 0.21 x10^3/uL; BANDS%(MANUAL) 2 % (0-7); LYMPH#(MANUAL) 0.93 x10^3/uL (1-3.4); LYMPHS% (MANUAL) 9 % (22-44); MONOS#(MANUAL) 0.31 x10^3/uL (0.3-2.7); MONOS% (MANUAL) 3 % (2-9); SEG#(MANUAL) 8.86 x10^3/uL (1.8-6.8); SEGS% (MANUAL) 86 % (42-75)
[2021-07-24 14:16] LABS: <PLATELET ESTIMATE> ADEQUATE; <PLT MORPHOLOGY> NORMAL PLT MORPH; ANISOCYTOSIS 1+; POLYCHROMASIA 1+
--- NOTE | 2021-07-24 14:16 | NUR ---
DELINQUENT NOTICE MACHINE OPERATOR PLACED SECOND PIV RIGHT LOWER LEG, 20G. IV PROTONIX BOLUS INFUSING. PT CONTINUES TO BE A&OX4 TALKING WITH SON.
--- NOTE | 2021-07-24 14:22 | NUR ---
NO ADVERSE REACTION NOTED AFTER 15 MIN OF BLOOD TRANSFUSION
--- NOTE | 2021-07-24 14:24 | NUR ---
LATE ENTRY D/T PT CARE: 1341: PT CGA ASSIST TO BEDSIDE COMMODE FOR URINE AND STOOL SAMPLE. 1343: PT SITTING ON BEDSIDE COMMODE LEANING OVER AND WHEN ASSESSED, PT HANDS, FEET, AND TEETH CLENCHED. PT WAS NOT RESPONSIVE. RAMILA HOOD WAS JUST OUTSIDE ROOM UPDATING PT SON. THIS RN CALLED RAMILA ERWIN INTO ROOM WHERE HE WAS UNABLE TO FEEL PULSE. PT PLACED BACK ONTO [facility], CPR STARTED BY RAMILA HOOD WHILE MY MANTILLA CALLED. COFFEE GROUND EMESIS, SUCTION STARTED. NO MEDS OR SHOCKS GIVEN DURING THIS TIME, ROSC ACHEIVED AFTER ABOUT 1 MIN CPR.
[2021-07-24] MEDS: PANTOPRAZOLE 80 MG in SODIUM CHLORIDE 0.9% 100 ML IV SCH (14:40)
[2021-07-24] MEDS ORDERED: POTA20PA31 PO (15:01)
[2021-07-24] MEDS ORDERED: SULF500T36 PO (15:01)
[2021-07-24] MEDS ORDERED: LATA7.5D EACHEYE (15:01)
[2021-07-24] MEDS ORDERED: DULO30CA2 PO (15:01)
[2021-07-24] MEDS ORDERED: LEVO100T5 PO (15:01)
[2021-07-24] MEDS ORDERED: CARV3.1212 PO (15:01)
--- NOTE | 2021-07-24 15:01 | NUR ---
BLOOD INFUSION COMPLETE. PT STATES SHE IS FEELING BETTER AFTER BLOOD.
--- NOTE | 2021-07-24 15:05 | NUR ---
SECOND BLOOD REQUESTED.
[2021-07-24 15:25] VITALS: BP 150/54
[2021-07-24] MEDS ORDERED: MORPHINE SULFATE 4 MG/ML, 1ML ONE (15:35)
[2021-07-24] MEDS ORDERED: ONDANSETRON 2MG/ML, 2ML ONE (15:37)
[2021-07-24 15:40] VITALS: BP 143/65
[2021-07-24] MEDS ORDERED: ONDANSETRON 2MG/ML, 2ML IVPush ONE (16:00)
[2021-07-24] MEDS ORDERED: MORPHINE SULFATE 4 MG/ML, 1ML IVPush PRN (16:00)
[2021-07-24] MEDS: OCTREOTIDE 500 MCG in SODIUM CHLORIDE 0.9% 99 ML IV PRN (16:15)
--- NOTE | 2021-07-24 16:28 | NUR ---
RIGHT FOOT PIV REMOVED AND 2 LARGE BORE PIVS PLACED TO BILATERAL ARM (RIGHT FOREARM 20GAUGE AND LEFT UPPER ARM BASILIC 18 GAUGE (2.[address] DUFFY (GI) AT BEDSIDE . PLAN TO SCOPE ON THURSDAY. TOTAL NPO UNTIL THAT TIME
--- NOTE | 2021-07-24 17:05 | NUR ---
PATIENT TRANSFERRED TO ROOM 489. ONCE MOVED TO BED. UNIT OF BLOOD COMPLETED. LINE FLUSHED. TRANSFUSION COMPLETED IN [facility]
[2021-07-24 17:17] VITALS: BP 117/81
[2021-07-24] MEDS ORDERED: OXYcodone IR 5MG TABLET PO PRN (18:00)
[2021-07-24] MEDS ORDERED: ONDANSETRON 2MG/ML, 2ML IVPush PRN (18:00)
[2021-07-24] MEDS ORDERED: hydrALAzine 20 MG/ML, 1ML IVPush PRN (18:00)
[2021-07-24] MEDS ORDERED: ONDANSETRON ODT 4 MG PO PRN (18:00)
[2021-07-24] MEDS ORDERED: DOCUSATE 100 MG CAPSULE PO PRN (18:00)
[2021-07-24] MEDS ORDERED: ACETAMINOPHEN 325 MG TABLET PO PRN (18:00)
[2021-07-24] MEDS ORDERED: PROMETHAZINE 25 MG/ML, 1ML IM PRN (18:00)
[2021-07-24] MEDS ORDERED: morphine SULFATE 10 MG/ML, 1ML IVPush PRN (18:00)
[2021-07-24 19:43] VITALS: BP 95/62
[2021-07-24] MEDS: SODIUM CHLORIDE 0.9% 1,000 ML IV SCH (20:12)
[2021-07-24] MEDS: CARVEDILOL 3.125 MG TABLET PO SCH (21:00)
[2021-07-24] MEDS: ATORVASTATIN 20 MG TABLET PO SCH (21:26)
[2021-07-24] MEDS: DORZOLAMIDE OPHTH 2%, 10ML EACHEYE SCH (21:26)
[2021-07-24] MEDS: SULFASALAZINE 500 MG TABLET PO SCH (21:27)
[2021-07-24 22:30] VITALS: BP 99/71
[2021-07-24 23:36] VITALS: BP 85/63
[2021-07-24 23:49] LABS: TROPONIN I 0.042 ng/mL (0.000-0.045)
[2021-07-25] VITALS (14 sets, daily range): BP systolic 81–146; BP diastolic 59–83
[2021-07-25] MEDS ORDERED: SODIUM CHLORIDE 0.9%, 500ML IVBOLUS ONE (02:00)
[2021-07-25] MEDS: PANTOPRAZOLE 80 MG in SODIUM CHLORIDE 0.9% 100 ML IV SCH ×4 (02:11→21:19)
[2021-07-25 03:14] LABS: MICROSCOPIC NOT IND
[2021-07-25 03:49] LABS: CLOSTRIDIUM DIFFICILE ANTIGEN NEGATIVE; CLOSTRIDIUM DIFFICILE TOXIN NEGATIVE (Negative)
[2021-07-25] MEDS: SODIUM CHLORIDE 0.9% 1,000 ML IV SCH ×2 (05:38→22:52)
[2021-07-25] MEDS: LEVOTHYROXINE 100 MCG TABLET PO SCH (05:38)
[2021-07-25] MEDS: OCTREOTIDE 500 MCG in SODIUM CHLORIDE 0.9% 99 ML IV PRN (09:01)
[2021-07-25] MEDS: DORZOLAMIDE OPHTH 2%, 10ML EACHEYE SCH ×2 (09:02→21:19)
[2021-07-25 09:18] LABS: CHLORIDE 116 mmol/L (98-107); INTERNATIONAL NORMALIZED RATIO 1.28 (0.93-1.1); PROTHROMBIN TIME 13.5 Seconds (9.6-11.5)
[2021-07-25 09:21] LABS: TROPONIN I 0.056 ng/mL (0.000-0.045)
[2021-07-25 09:29] LABS: ALANINE AMINOTRANSFERASE 26 U/L (12-78); ALBUMIN 2.1 g/dL (3.4-5.0); ALKALINE PHOSPHATASE 51 U/L (45-117); ANION GAP 10 mmol/L (5-15); BILIRUBIN,TOTAL 0.6 mg/dL (0.2-1.0); CALCIUM 7.7 mg/dL (8.5-10.1); CHOL/HDL RATIO 3.1; CHOLESTEROL, TOTAL 92 mg/dL (140-239); CREATININE 0.83 mg/dL (0.55-1.02); HDL CHOL % 33 % (28-40); HDL CHOLESTEROL (DIRECT) 30 mg/dL (40-60); LDL CHOLESTEROL,CALCULATED 41 mg/dL (54-169); LDL/HDL RATIO 1.4 (0.5-3.0); TOTAL PROTEIN 5.2 g/dL (6.4-8.2); TRIGLYCERIDES 106 mg/dL (50-200); VLDL CHOLESTEROL 21 mg/dL (0-25)
[2021-07-25] MEDS ORDERED: SODIUM CHLORIDE 0.9% 250 ML IV ONE (10:00)
[2021-07-25] MEDS ORDERED: CHLORHEXIDINE 15 ML UDC ONE (10:25)
[2021-07-25] MEDS ORDERED: PROPOFOL 10 MG/ML, 20ML ONE ×2 (11:08)
[2021-07-25] MEDS: SULFASALAZINE 500 MG TABLET PO SCH ×2 (13:45→21:20)
[2021-07-25] MEDS: CARVEDILOL 3.125 MG TABLET PO SCH ×2 (13:47→21:20)
[2021-07-25] MEDS: DULOXETINE 30 MG CAPSULE.DR PO SCH (13:47)
[2021-07-25] MEDS ORDERED: METOCLOPRAMIDE 5 MG/ML, 2ML IVPush SCH (21:00)
[2021-07-25] MEDS: ATORVASTATIN 20 MG TABLET PO SCH (21:20)
[2021-07-26] VITALS (9 sets, daily range): BP systolic 102–136; BP diastolic 64–81
[2021-07-26] MEDS: LEVOTHYROXINE 100 MCG TABLET PO SCH (05:44)
[2021-07-26] MEDS: OCTREOTIDE 500 MCG in SODIUM CHLORIDE 0.9% 99 ML IV PRN (05:44)
[2021-07-26] MEDS: PANTOPRAZOLE 80 MG in SODIUM CHLORIDE 0.9% 100 ML IV SCH ×2 (05:53→18:36)
[2021-07-26 06:31] LABS: MEAN CORPUSCULAR HEMOGLOBIN 31.4 pg (27.0-34.8); MEAN CORPUSCULAR HGB CONC 33.6 g/dL (32.4-35.8); MEAN PLATELET VOLUME 7.1 fL (7.4-10.4); PLATELET COUNT 131 x10^3/uL (130-400); RED BLOOD COUNT 2.39 x10^6/uL (3.82-5.3); RED CELL DISTRIBUTION WIDTH 17.1 % (9.6-15.2)
[2021-07-26 06:37] LABS: ANION GAP 4 mmol/L (5-15); CALCIUM 7.1 mg/dL (8.5-10.1); CHLORIDE 117 mmol/L (98-107); CREATININE 0.68 mg/dL (0.55-1.02)
[2021-07-26] MEDS ORDERED: POTASSIUM PHOSPHATE 44 MEQ in SODIUM CHLORIDE 0.9% 500 ML IV ONE (07:00)
[2021-07-26 07:02] LABS: <PLATELET ESTIMATE> ADEQUATE; <PLT MORPHOLOGY> NORMAL PLT MORPH; ANISOCYTOSIS 1+; EOS#(MANUAL) 0.48 x10^3/uL (0.0-0.4); EOS% (MANUAL) 4 % (1-7); LYMPH#(MANUAL) 2.38 x10^3/uL (1-3.4); LYMPHS% (MANUAL) 20 % (22-44); MONOS#(MANUAL) 0.83 x10^3/uL (0.3-2.7); MONOS% (MANUAL) 7 % (2-9); POLYCHROMASIA 1+; SEG#(MANUAL) 8.21 x10^3/uL (1.8-6.8); SEGS% (MANUAL) 69 % (42-75)
[2021-07-26] MEDS: CARVEDILOL 3.125 MG TABLET PO SCH ×2 (08:46→21:27)
[2021-07-26] MEDS: SODIUM CHLORIDE 0.9% 1,000 ML IV SCH ×2 (09:00→21:28)
[2021-07-26] MEDS ORDERED: OCTREOTIDE 50 MCG/ML, 1ML (0.05MG/ML) ONE (11:26)
[2021-07-26] MEDS ORDERED: PROPOFOL 50 ML ONE (11:27)
[2021-07-26] MEDS ORDERED: ONDANSETRON 2MG/ML, 2ML IVPush PRN (12:00)
[2021-07-26] MEDS ORDERED: FENTANYL PF 100 MCG/2ML IV PRN (12:00)
[2021-07-26] MEDS: DULOXETINE 30 MG CAPSULE.DR PO SCH (13:36)
[2021-07-26] MEDS: SULFASALAZINE 500 MG TABLET PO SCH ×2 (13:37→21:27)
[2021-07-26] MEDS: DORZOLAMIDE OPHTH 2%, 10ML EACHEYE SCH ×2 (14:58→21:27)
[2021-07-26] MEDS: ATORVASTATIN 20 MG TABLET PO SCH (21:27)
[2021-07-27 01:07] VITALS: BP 112/65
[2021-07-27] MEDS: OCTREOTIDE 500 MCG in SODIUM CHLORIDE 0.9% 99 ML IV PRN (02:03)
[2021-07-27] MEDS: PANTOPRAZOLE 80 MG in SODIUM CHLORIDE 0.9% 100 ML IV SCH ×2 (03:23→16:42)
[2021-07-27] MEDS: LEVOTHYROXINE 100 MCG TABLET PO SCH (05:21)
[2021-07-27 06:21] LABS: MEAN CORPUSCULAR HEMOGLOBIN 31.7 pg (27.0-34.8); MEAN CORPUSCULAR HGB CONC 33.8 g/dL (32.4-35.8); MEAN PLATELET VOLUME 7.1 fL (7.4-10.4); PLATELET COUNT 73 x10^3/uL (130-400); RED BLOOD COUNT 2.46 x10^6/uL (3.82-5.3); RED CELL DISTRIBUTION WIDTH 16.4 % (9.6-15.2)
[2021-07-27 06:28] LABS: ANION GAP 7 mmol/L (5-15); CALCIUM 7.3 mg/dL (8.5-10.1); CHLORIDE 115 mmol/L (98-107)
[2021-07-27 06:31] LABS: CREATININE 0.55 mg/dL (0.55-1.02)
[2021-07-27 06:44] LABS: <PLATELET ESTIMATE> DECREASED; <PLT MORPHOLOGY> NORMAL PLT MORPH; ANISOCYTOSIS 1+; BAND#(MANUAL) 0.56 x10^3/uL; BANDS%(MANUAL) 4 % (0-7); LYMPHS% (MANUAL) 5 % (22-44); MONOS#(MANUAL) 0.56 x10^3/uL (0.3-2.7); MONOS% (MANUAL) 4 % (2-9); POLYCHROMASIA 1+; SEG#(MANUAL) 12.09 x10^3/uL (1.8-6.8); SEGS% (MANUAL) 87 % (42-75)
[2021-07-27] MEDS ORDERED: POTASSIUM CHLORIDE 40 MEQ in SODIUM CHLORIDE 0.9% 500 ML IV ONE (08:00)
[2021-07-27] MEDS ORDERED: POTASSIUM PHOSPHATE 44 MEQ in SODIUM CHLORIDE 0.9% 500 ML IV ONE (08:00)
[2021-07-27 08:36] VITALS: BP 109/65
[2021-07-27] MEDS: CARVEDILOL 3.125 MG TABLET PO SCH ×2 (08:46→20:23)
[2021-07-27] MEDS: DULOXETINE 30 MG CAPSULE.DR PO SCH (08:46)
[2021-07-27] MEDS: SODIUM CHLORIDE 0.9% 1,000 ML IV SCH ×2 (08:47→20:25)
[2021-07-27] MEDS: DORZOLAMIDE OPHTH 2%, 10ML EACHEYE SCH ×2 (08:47→20:22)
[2021-07-27] MEDS: SULFASALAZINE 500 MG TABLET PO SCH ×2 (08:47→20:26)
[2021-07-27 13:59] VITALS: BP 108/68
[2021-07-27 20:00] VITALS: BP 114/67
[2021-07-27] MEDS: ATORVASTATIN 20 MG TABLET PO SCH (20:23)
[2021-07-28 00:06] VITALS: BP 110/69
[2021-07-28] MEDS: PANTOPRAZOLE 80 MG in SODIUM CHLORIDE 0.9% 100 ML IV SCH ×2 (01:20→11:00)
[2021-07-28 05:37] VITALS: BP 112/58
[2021-07-28] MEDS: LEVOTHYROXINE 100 MCG TABLET PO SCH (05:38)
[2021-07-28 06:13] LABS: MEAN CORPUSCULAR HEMOGLOBIN 31.8 pg (27.0-34.8); MEAN CORPUSCULAR HGB CONC 33.4 g/dL (32.4-35.8); PLATELET COUNT 68 x10^3/uL (130-400); RED BLOOD COUNT 2.39 x10^6/uL (3.82-5.3)
[2021-07-28 06:26] LABS: ANION GAP 4 mmol/L (5-15); CALCIUM 6.7 mg/dL (8.5-10.1); CHLORIDE 110 mmol/L (98-107)
[2021-07-28 06:30] LABS: ALANINE AMINOTRANSFERASE 26 U/L (12-78); ALKALINE PHOSPHATASE 66 U/L (45-117); BILIRUBIN,TOTAL 1.3 mg/dL (0.2-1.0); CREATININE 0.44 mg/dL (0.55-1.02); TOTAL PROTEIN 5.2 g/dL (6.4-8.2)
[2021-07-28 06:38] LABS: <PLATELET ESTIMATE> DECREASED; <PLT MORPHOLOGY> NORMAL PLT MORPH; ANISOCYTOSIS 1+; BAND#(MANUAL) 0.24 x10^3/uL; BANDS%(MANUAL) 2 % (0-7); EOS#(MANUAL) 0.12 x10^3/uL (0.0-0.4); EOS% (MANUAL) 1 % (1-7); LYMPH#(MANUAL) 0.94 x10^3/uL (1-3.4); LYMPHS% (MANUAL) 8 % (22-44); MONOS#(MANUAL) 0.47 x10^3/uL (0.3-2.7); MONOS% (MANUAL) 4 % (2-9); POLYCHROMASIA 1+; SEG#(MANUAL) 10.03 x10^3/uL (1.8-6.8); SEGS% (MANUAL) 85 % (42-75)
[2021-07-28] MEDS: SODIUM CHLORIDE 0.9% 1,000 ML IV SCH (07:09)
[2021-07-28] MEDS: SULFASALAZINE 500 MG TABLET PO SCH ×2 (09:00→20:05)
[2021-07-28] MEDS: CARVEDILOL 3.125 MG TABLET PO SCH ×2 (09:02→20:05)
[2021-07-28] MEDS: DORZOLAMIDE OPHTH 2%, 10ML EACHEYE SCH ×2 (09:02→20:04)
[2021-07-28] MEDS: DULOXETINE 30 MG CAPSULE.DR PO SCH (09:02)
[2021-07-28 09:29] VITALS: BP 115/67
[2021-07-28 14:12] VITALS: BP 133/77
[2021-07-28] MEDS ORDERED: LOPERAMIDE 2 MG CAPSULE PO PRN (16:30)
[2021-07-28] MEDS: PANTOPRAZOLE 40 MG IV IVPush SCH (16:53)
[2021-07-28 19:43] VITALS: BP 116/65
[2021-07-28] MEDS: OCTREOTIDE 500 MCG in SODIUM CHLORIDE 0.9% 99 ML IV PRN (19:47)
[2021-07-28] MEDS: ATORVASTATIN 20 MG TABLET PO SCH (20:05)
[2021-07-29] VITALS (10 sets, daily range): BP systolic 86–126; BP diastolic 47–74
[2021-07-29] MEDS: PANTOPRAZOLE 40 MG IV IVPush SCH ×2 (05:08→16:27)
[2021-07-29] MEDS: LEVOTHYROXINE 100 MCG TABLET PO SCH (05:08)
[2021-07-29] MEDS: SULFASALAZINE 500 MG TABLET PO SCH ×2 (08:44→21:12)
[2021-07-29] MEDS: CARVEDILOL 3.125 MG TABLET PO SCH ×2 (08:44→21:12)
[2021-07-29] MEDS: DORZOLAMIDE OPHTH 2%, 10ML EACHEYE SCH ×2 (08:44→21:12)
[2021-07-29] MEDS: DULOXETINE 30 MG CAPSULE.DR PO SCH (08:44)
[2021-07-29 09:05] LABS: BASOPHILS % (AUTO) 0 % (0-1); EOSINOPHILS % (AUTO) 2 % (1-7); LYMPHOCYTES % (AUTO) 6 % (22-44); MEAN CORPUSCULAR HEMOGLOBIN 31.7 pg (27.0-34.8); MEAN CORPUSCULAR HGB CONC 33.7 g/dL (32.4-35.8); MEAN PLATELET VOLUME 7.5 fL (7.4-10.4); MONOCYTES % (AUTO) 12 % (2-9); NEUTROPHILS % (AUTO) 80 % (42-75); PLATELET COUNT 88 x10^3/uL (130-400); RED BLOOD COUNT 2.38 x10^6/uL (3.82-5.3); RED CELL DISTRIBUTION WIDTH 18.2 % (9.6-15.2)
[2021-07-29 09:14] LABS: ALANINE AMINOTRANSFERASE 22 U/L (12-78); ALBUMIN 1.8 g/dL (3.4-5.0); ANION GAP 5 mmol/L (5-15); CHLORIDE 110 mmol/L (98-107); CREATININE 0.43 mg/dL (0.55-1.02)
[2021-07-29 09:17] LABS: ALKALINE PHOSPHATASE 75 U/L (45-117); BILIRUBIN,TOTAL 0.9 mg/dL (0.2-1.0); TOTAL PROTEIN 5.2 g/dL (6.4-8.2)
[2021-07-29] MEDS: OCTREOTIDE 500 MCG in SODIUM CHLORIDE 0.9% 99 ML IV PRN (11:07)
[2021-07-29] MEDS: POTASSIUM CHLORIDE 20 MEQ TAB.ER.PRT PO SCH ×2 (13:16→16:27)
[2021-07-29] MEDS: ATORVASTATIN 20 MG TABLET PO SCH (21:12)
[2021-07-30 02:22] VITALS: BP 126/75
[2021-07-30] MEDS: PANTOPRAZOLE 40 MG IV IVPush SCH (05:09)
[2021-07-30] MEDS: LEVOTHYROXINE 100 MCG TABLET PO SCH (05:10)
[2021-07-30 07:37] VITALS: BP 114/64
[2021-07-30] MEDS: SULFASALAZINE 500 MG TABLET PO SCH (08:50)
[2021-07-30] MEDS: OCTREOTIDE 500 MCG in SODIUM CHLORIDE 0.9% 99 ML IV PRN (08:50)
[2021-07-30] MEDS: CARVEDILOL 3.125 MG TABLET PO SCH (08:50)
[2021-07-30] MEDS: DORZOLAMIDE OPHTH 2%, 10ML EACHEYE SCH (08:50)
[2021-07-30] MEDS: POTASSIUM CHLORIDE 20 MEQ TAB.ER.PRT PO SCH (08:50)
[2021-07-30] MEDS: DULOXETINE 30 MG CAPSULE.DR PO SCH (08:51)
[2021-07-30 09:42] LABS: BASOPHILS % (AUTO) 0 % (0-1); EOSINOPHILS % (AUTO) 3 % (1-7); LYMPHOCYTES % (AUTO) 7 % (22-44); MEAN CORPUSCULAR HEMOGLOBIN 30.9 pg (27.0-34.8); MEAN CORPUSCULAR HGB CONC 33.3 g/dL (32.4-35.8); MEAN PLATELET VOLUME 7.5 fL (7.4-10.4); MONOCYTES % (AUTO) 12 % (2-9); NEUTROPHILS % (AUTO) 78 % (42-75); PLATELET COUNT 131 x10^3/uL (130-400); RED BLOOD COUNT 3.35 x10^6/uL (3.82-5.3); RED CELL DISTRIBUTION WIDTH 17.2 % (9.6-15.2)
[2021-07-30 12:57] LABS: ALBUMIN 1.8 g/dL (3.4-5.0); CALCIUM 7.3 mg/dL (8.5-10.1)
[2021-07-30 13:00] LABS: ALANINE AMINOTRANSFERASE 24 U/L (12-78); ALKALINE PHOSPHATASE 91 U/L (45-117); BILIRUBIN,TOTAL 1.1 mg/dL (0.2-1.0); CREATININE 0.62 mg/dL (0.55-1.02); TOTAL PROTEIN 5.9 g/dL (6.4-8.2)
[2021-07-30 13:08] VITALS: BP 131/76
[2021-07-30 13:11] LABS: ANION GAP 8 mmol/L (5-15); CHLORIDE 111 mmol/L (98-107)
[2021-07-30] MEDS ORDERED: FURO-93 PO (13:39)
[2021-07-30] MEDS ORDERED: SPIR25TA PO (13:45)
[2021-07-30] MEDS ORDERED: OMEP-110 PO (13:47)
[2021-07-30] MEDS ORDERED: FERR324T5 PO (14:35)
[2021-07-30] MEDS ORDERED: TRAM50TA2 PO (14:37)
== END 2021-07-30 14:45 | disposition home health service (06) | DRG 432 ==
LOC: ED 14:21 → 4EST 14:44 → ED 14:44 → 4EST 16:46
PROVIDERS: ADMIT Family Medicine; ATTEND Hospitalist
PROC: 5A12012 Performance of Cardiac Output, Single, Manual (ICD-10-PCS; 2021-07-24)
PROC: 3E0234Z Introduction of Serum, Toxoid and Vaccine into Muscle, Percutaneous Approach (ICD-10-PCS; 2021-07-24)
PROC: 06L38CZ Occlusion of Esophageal Vein with Extraluminal Device, Via Natural or Artificial Opening Endoscopic (ICD-10-PCS; principal; 2021-07-26 11:00)
DX: K74.60 Unspecified cirrhosis of liver (principal); I46.9 Cardiac arrest, cause unspecified; D62 Acute posthemorrhagic anemia; D84.9 Immunodeficiency, unspecified; I85.10 Secondary esophageal varices without bleeding; K74.00 Hepatic fibrosis, unspecified; E03.9 Hypothyroidism, unspecified; E78.5 Hyperlipidemia, unspecified; F03.90 Unspecified dementia, unspecified severity, without behavioral disturbance, psychotic disturbance, mood disturbance, and anxiety; I10 Essential (primary) hypertension; K44.9 Diaphragmatic hernia without obstruction or gangrene; K76.0 Fatty (change of) liver, not elsewhere classified; M06.9 Rheumatoid arthritis, unspecified; F32.9 Major depressive disorder, single episode, unspecified; G89.29 Other chronic pain; K21.9 Gastro-esophageal reflux disease without esophagitis; Z20.822 Contact with and (suspected) exposure to COVID-19; I34.0 Nonrheumatic mitral (valve) insufficiency; K57.90 Diverticulosis of intestine, part unspecified, without perforation or abscess without bleeding; Z86.19 Personal history of other infectious and parasitic diseases; Z87.891 Personal history of nicotine dependence; Z79.899 Other long term (current) drug therapy; Z90.49 Acquired absence of other specified parts of digestive tract
CPT/HCPCS: 36415; 36430; 71045; 74018; 80048; 80053; 80061; 81003; 83036; 83690; 83735; 83880; 84100; 84443; 84484; 85014; 85018; 85025; 85610; 86850; 86900; 86923; 87046; 87324; 87427; 87635; 89055; 93005; 93306; 96374; 96375; G0378; J2354; J2405; J2704; J3480; C9113; J2270; J2765; J7030; J7040; J7050; P9016